=== PATIENT | female | born 1990 | race Caucasian/White ===

== ENCOUNTER 2017-07-01 13:04 | Inpatient (IN) | payer OTHER ==
--- NOTE | 2017-07-01 13:34 | PN ---
L&D Outpatient: Visit - Reproductive Information Estimated Due Date: 07/22/17 Gestational Age: 37 Weeks and 0 Days - Reason for Visit Visit Reason: will admit for induction of labor given 37 weeks with pre eclampsia
[2017-07-01] MEDS ORDERED: Dinoprostone* 10 MG VAG.SUPP VAGINAL ONE (13:45)
[2017-07-01 14:19] LABS: Benzodiazepine Urine Screen None Detected (None Detect)
[2017-07-01 15:01] LABS: Hematocrit 38 % (35-47); Mean Corpuscular HGB Conc 34 g/dl (31-36); Mean Corpuscular Hemoglobin 32 pg (27-31); Mean Corpuscular Volume 92 fL (80-97); Mean Platelet Volume 9 um3 (7.4-10.4); Red Blood Count 4.13 10^6/ul (4.0-5.4); Red Cell Distribution Width 14 % (10.5-15); White Blood Count 10.3 10^3/ul (3.5-10.8)
[2017-07-02] MEDS ORDERED: Oxytocin in LR* 20 UNITS/1,000 ML BAG IVPB ONE (03:58)
[2017-07-02] MEDS ORDERED: fentaNYL* 50 MCG/ML 2 ML VIAL (100 MCG VIAL) ONE (04:22)
[2017-07-02] MEDS ORDERED: ceFAZolin 2 GM PREMIX (*) 2 GM/50 ML BAG IVPB ONE (04:34)
[2017-07-02] MEDS ORDERED: Labetalol IV* 5 MG/ML 20 ML VIAL ONE (04:43)
[2017-07-02] MEDS ORDERED: fentaNYL* 50 MCG/ML 2 ML VIAL (100 MCG VIAL) IV ONE (04:48)
[2017-07-02] MEDS ORDERED: Glycerin ADULT SUPP PR PRN (04:49)
[2017-07-02] MEDS ORDERED: Witch Hazel PAD* JAR TOPICAL PRN (04:49)
[2017-07-02] MEDS ORDERED: Acetaminophen TAB* 325 MG PO PRN (04:49)
[2017-07-02] MEDS ORDERED: Misoprostol TAB* 200 MCG PR ONE (04:49)
[2017-07-02] MEDS ORDERED: Labetalol IV* 5 MG/ML 20 ML VIAL IV PUSH ONE (04:56)
[2017-07-02] MEDS ORDERED: Oxytocin in LR* 20 UNITS/1,000 ML BAG IVPB SCH (05:00)
[2017-07-02] MEDS: Labetalol IV* 5 MG/ML 20 ML VIAL IV PUSH PRN ×2 (05:10→05:52)
[2017-07-02] MEDS: ceFAZolin 2 GM PREMIX (*) 2 GM/50 ML BAG IVPB SCH ×2 (05:49→11:59)
[2017-07-02] MEDS ORDERED: Simethicone TAB* 80 MG TAB.CHEW PO SCH (08:30)
[2017-07-02] MEDS: Docusate CAP* 100 MG PO SCH ×3 (09:11→20:37)
[2017-07-02] MEDS: Ibuprofen TAB* 600 MG PO PRN ×2 (09:11→15:46)
[2017-07-02] MEDS: Labetalol TAB* 100 MG PO SCH ×2 (09:11→20:37)
--- NOTE | 2017-07-02 11:30 | PTEDU ---
Patient Name: JOYCE HARDY JOYCE HARDY selected video: Never Ever Shake a Baby to view on 07/02/2017 at 11:28:46 AM from [id number]
--- NOTE | 2017-07-02 11:42 | PTEDU ---
Patient Name: JOYCE HARDY JOYCE HARDY selected video: BBOB: Bonding Through Infant Massage to view on 07/02/2017 at 11:40: 40 AM from [id number]
[2017-07-02] MEDS: Dibucaine 1% 28.35 GM TUBE PR PRN (15:46)
[2017-07-03 06:36] LABS: Hematocrit 30 % (35-47); Hemoglobin 10.1 g/dl (12.0-16.0); Mean Corpuscular HGB Conc 34 g/dl (31-36); Mean Corpuscular Hemoglobin 32 pg (27-31); Mean Corpuscular Volume 92 fL (80-97); Mean Platelet Volume 9 um3 (7.4-10.4); Red Blood Count 3.19 10^6/ul (4.0-5.4); Red Cell Distribution Width 14 % (10.5-15); White Blood Count 13.8 10^3/ul (3.5-10.8)
[2017-07-03] MEDS: Docusate CAP* 100 MG PO SCH ×3 (08:42→21:12)
[2017-07-03] MEDS: Labetalol TAB* 100 MG PO SCH ×2 (08:42→21:04)
[2017-07-03] MEDS: Ibuprofen TAB* 600 MG PO PRN ×2 (08:42→21:04)
[2017-07-03] MEDS: Dibucaine 1% 28.35 GM TUBE PR PRN (08:43)
[2017-07-03] MEDS: Ferrous Gluconate TAB* 324 MG TAB PO SCH ×2 (09:00→21:12)
[2017-07-04] MEDS: Ibuprofen TAB* 600 MG PO PRN (06:48)
[2017-07-04] MEDS: Dibucaine 1% 28.35 GM TUBE PR PRN (07:38)
[2017-07-04] MEDS: Labetalol TAB* 100 MG PO SCH ×2 (08:09→20:58)
[2017-07-04] MEDS: Docusate CAP* 100 MG PO SCH ×3 (08:09→20:58)
[2017-07-04 19:41] VITALS: BP 152/87
== END 2017-07-04 21:02 | disposition home or self-care (01) | DRG 774 ==
LOC: MCHOBOUT 13:04 → MCHOB 14:08
PROVIDERS: ADMIT Obstetrics & Gynecology; ATTEND Obstetrics & Gynecology
PROC: 10E0XZZ Delivery of Products of Conception, External Approach (ICD-10-PCS; principal; 2017-07-02)
PROC: 0KQM0ZZ Repair Perineum Muscle, Open Approach (ICD-10-PCS; 2017-07-02)
PROC: 3E0P7VZ Introduction of Hormone into Female Reproductive, Via Natural or Artificial Opening (ICD-10-PCS; 2017-07-02)
DX: O14.04 Mild to moderate pre-eclampsia, complicating childbirth (principal); O16.5 Unspecified maternal hypertension, complicating the puerperium; O99.344 Other mental disorders complicating childbirth; F11.21 Opioid dependence, in remission; F31.9 Bipolar disorder, unspecified; O70.1 Second degree perineal laceration during delivery; Z3A.37 37 weeks gestation of pregnancy; Z37.0 Single live birth
CPT/HCPCS: 36415; 80307; 85025; 88307; A9270-GY; J0690; J3010

== ENCOUNTER 2018-05-14 12:08 | Emergency (ER) | payer OTHER, MEDICAID ==
[2018-05-14 12:18] VITALS: BP 127/73
--- NOTE | 2018-05-14 12:30 | UC ---
Dizzy HPI HPI Summary: 27 y/o female presents to the urgent care c/o dizziness s/p riding a spinning ride last Monday05/11/2018. Pt dizziness is intermittent and yesterday she had 2 episodes of vomiting. Today she feels decrease hearing at times and B/L ear pressure w/ nausea. No vomiting today. She feels at times the room is moving. Pt has not taking anything to alleviate symptoms. Pt denies CANALES, tinnitus, SOB, chest pain, palpitations, abdominal pain, V/D. - History Of Current Complaint Chief Complaint: UCDizziness Stated Complaint: DIZZY Time Seen by Provider: 05/14/18 12:16 Hx Obtained From: Patient Hx Last Menstrual Period: 3 weeks ago ?: No - Pt declines test Onset/Duration: Gradual Onset, Lasting Days - 3 days, Still Present Timing: Intermittent Episode Lasting - seconds Severity Initially: Mild Severity Currently: Mild Pain Intensity: 0 Pain Scale Used: 0-10 Numeric Character: Room Spinning, Dizzy Aggravating Factor(s): Position Change Alleviating Factor(s): Rest Associated Signs And Symptoms: Positive: Nausea, Vomiting. Negative: Tinnitus, Chest Pain, SOB, Palpitations, Unsteady Gait, Visual Changes, Change In Medication - Risk Factors Cardiac Risk Factors: Negative CVA Risk Factor: Negative - Allergies/Home Medications Allergies/Adverse Reactions: Allergies Allergy/AdvReac Type Severity Reaction Status Date / Time soy Allergy Nausea Verified 05/14/18 12:19 Home Medications: Home Medications hydrOXYzine HCL TAB* [Atarax 10 MG TAB*] 10 mg PO QID PRN 05/14/18 [History Confirmed 05/14/18] PMH/Surg Hx/FS Hx/Imm Hx Previously Healthy: Yes Psychological History: Anxiety - Surgical History Surgical History: None - Family History Known Family History: Positive: None - Pt denies FMHX - Social History Occupation: Unemployed Lives: With Family Alcohol Use: None Alcohol Amount: not during pregnac Substance Use Type: None Substance Use Comment - Amount & Last Used: 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 Smoking Status (MU): Former Smoker Type: Cigarettes Amount Used/How Often: 2-3 cig/day Have You Smoked in the Last Year: Yes When Did the Patient Quit Smoking/Using Tobacco: quit with - Immunization History Most Recent Influenza Vaccination: 06/08/17 Most Recent Pneumonia Vaccination: na Review of Systems Constitutional: Negative Skin: Negative Eyes: Negative ENT: Ear Ache - B/L ear fullness and pressure, Other - dizziness Respiratory: Negative Cardiovascular: Negative Gastrointestinal: Vomiting - yesterday 2 episodes, Nausea Genitourinary: Negative Motor: Negative Neurovascular: Negative Musculoskeletal: Negative Neurological: Negative Psychological: Negative Is Patient Immunocompromised?: No All Other Systems Reviewed And Are Negative: Yes Physical Exam - Summary Physical Exam Summary: Vital Signs Reviewed: Yes General: well developed, well nourished old female sitting in the examining table w/o any apparent respiratory distress. Eyes: Positive: Conjunctiva Clear - PERRLA, EOMI, fundi grossly normal ENT: Positive: Normal ENT inspection, Hearing grossly normal, Pharynx normal, TMs normal - B/L external ear canal clear, B/L TM's WNL, Other: - no maxillary or frontal sinus tenderness on percussion. Positive [place]-hallpike maneuver. Negative: Tonsillar swelling, Tonsillar exudate Dental Exam: Normal Neck: Positive: Supple, Nontender, No Lymphadenopathy Respiratory: Positive: Chest non-tender, Lungs clear, Normal breath sounds Cardiovascular: Positive: RRR, No Murmur, Pulses Normal, Brisk Capillary Refill Abdomen Description: Positive: Nontender, No Organomegaly, Soft. Negative: CVA Tenderness (R), CVA Tenderness (L) Bowel Sounds: Positive: Present Musculoskeletal Exam: Normal Musculoskeletal: Positive: Strength Intact, ROM Intact, No Edema Neurological Exam: Normal Neurological: Positive: Alert, Muscle Tone Normal, -Neuro: A&O x4, GCS 15, CN II-XII intact, no focal neuro deficits, normal [id number] or [id number]-[id number] testing. Romberg neg, no pronator drift, normal rapid alternating movements. Gait is normal, Psychological Exam: Normal Skin Exam: Normal Triage Information Reviewed: Yes Vital Signs: Initial Vital Signs Temp 98.7 F 05/14/18 12:13 Pulse 72 05/14/18 12:13 Resp 18 05/14/18 12:13 BP 127/73 05/14/18 12:13 Pulse Ox 95 05/14/18 12:13 Dizzy Course/Dx - Course Course Of Treatment: 27 y/o female presents to the urgent care c/o dizziness s/ p riding a spinning ride last Monday05/11/2018. Pt dizziness is intermittent and yesterday she had 2 episodes of vomiting. Today she feels decrease hearing at times and B/L ear pressure w/ nausea. No vomiting today. She feels at times the room is moving. Pt has not taking anything to alleviate symptoms. Pt deneis CANALES, tinnitus, SOB, chest pain, palpitations, abdominal pain, V/D.Hx obtained. PE : WNL. Positive [place]-hallpike maneuver. Pt declined test since LMP was 3 weeks ago. Pt Rx Meclizine PO to alleviate dizziness and Zofran PO for nausea and vomiting. Advised if not improvement to f/u with ENT DR Barraza for further evaluation and treatment Pt understood and agreed witn plan of care. D/ C instructions explained. Pt left the clinic ambulating,hemodynamically stable, A&OX3 - Differential Dx/Diagnosis Differential Diagnosis/HQI/PQRI: Benign Paroxysmal Positional Vertigo, Labyrinthitis, Meniere's Disease, Vasovagal Reaction Provider Diagnoses: 1- Dizziness. 2-Bening Paroxysmal positional vertigo. 3- Nausea and vomiting Discharge - Sign-Out/Discharge Documenting (check all that apply): Patient Departure - D/c home All imaging exams completed and their final reports reviewed: No Studies - Discharge Plan Condition: Stable Disposition: HOME Prescriptions: Meclizine TAB* [Antivert 12.5 TAB*] 25 mg PO TID #21 tab Ondansetron ODT TAB* [Zofran 4 MG Odt TAB*] 4 mg PO Q6H PRN #12 tab.odt PRN Reason: nausea anbd vomiting Patient Education Materials: Benign Paroxysmal Positional Vertigo (ED), Dizziness (ED) Referrals: [facility] [Outside] - 3 Days Mikel Barraza MD [Medical Doctor] - 3 Days Additional Instructions: 1- Please take Zofran PO to alleviate Nausea and vomiting. 2- Take Meclizine PO to alleviate dizziness. 3-if symptoms do not improve despite taking medications please f/u PCP or ENT Dr Barraza in 3 days for further evaluation and treatment. 4- If vomiting and dizziness continues severely despite medications please go Immediately to the ER for further evaluation and treatment. - Billing Disposition and Condition Condition: STABLE Disposition: Home
== END 2018-05-14 12:35 | disposition home or self-care (01) ==
LOC: UCEAST 12:08
DX: H81.13 Benign paroxysmal vertigo, bilateral (principal); R42 Dizziness and giddiness; R11.2 Nausea with vomiting, unspecified; F41.9 Anxiety disorder, unspecified; Z79.899 Other long term (current) drug therapy; Z87.891 Personal history of nicotine dependence; Z91.018 Allergy to other foods
CPT/HCPCS: 99212; G0463